=== PATIENT | female | born 1970 | race Two or more races ===

== ENCOUNTER 2016-06-02 20:49 | Emergency (ER) | payer OTHER ==
[~2016-06-02] VITALS: Ht 154.9 cm; Wt 85.7 kg
[2016-06-03 02:25] VITALS: BP 109/65
[2016-06-03] MEDS ORDERED: KETOROLAC TROMETH 60MG/2ML VIAL IM ONE (03:30)
== END 2016-06-03 03:54 | disposition home or self-care (01) ==
LOC: ER 20:54
DX: M71.22 Synovial cyst of popliteal space [Baker], left knee (principal); Z76.0 Encounter for issue of repeat prescription
CPT/HCPCS: 96372; 99283; J1885

== ENCOUNTER 2018-05-23 11:29 | Emergency (ER) | payer OTHER ==
[~2018-05-23] VITALS: Ht 154.9 cm; Wt 79.4 kg
[2018-05-23 11:38] VITALS: BP 112/55
== END 2018-05-23 12:44 | disposition home or self-care (01) ==
LOC: ER 11:29
DX: M23.92 Unspecified internal derangement of left knee (principal); M17.12 Unilateral primary osteoarthritis, left knee
CPT/HCPCS: 73562

== ENCOUNTER 2018-10-29 07:14 | Emergency (ER) | payer MEDICAID ==
[~2018-10-29] VITALS: Ht 154.9 cm; Wt 80.3 kg
[2018-10-29 07:25] VITALS: BP 105/57
[2018-10-29 07:50] LABS: Urine Bacteria NONE SEEN /hpf (None Seen); Urine Blood 3+ /uL (Negative); Urine WBC 37 /hpf (0 - 5)
[2018-10-29 07:55] LABS: Urine Specific Gravity 1.013 (1.001-1.035)
== END 2018-10-29 09:38 | disposition home or self-care (01) ==
LOC: ER 07:24
DX: N39.0 Urinary tract infection, site not specified (principal); Z90.49 Acquired absence of other specified parts of digestive tract; Z90.710 Acquired absence of both cervix and uterus
CPT/HCPCS: 81001